=== PATIENT | male | born 1980 | race Caucasian/White ===

== ENCOUNTER 2017-01-15 06:10 | Emergency (ER) | payer SELFPAY ==
[2017-01-15] MEDS ORDERED: HALOPERIDOL LACT 5 MG/ML INJ IM ONE (06:17)
--- NOTE | 2017-01-15 06:19 | EDPHY ---
H & P Source: Patient, Police, EMS - Medical/Surgical History Hx Asthma: No Hx Chronic Respiratory Disease: No Hx Diabetes: No Hx Cardiac Disease: No Hx Renal Disease: No Hx Cirrhosis: No Hx Alcoholism: No Hx HIV/AIDS: No Hx Splenectomy or Spleen Trauma: No Other PMH: Born with one kidney - Social History Smoking Status: Never smoked HPI/ROS: HPI CHIEF COMPLAINT: AMS, Crying, Running in between cars. HISTORY OF PRESENT ILLNESS: Patient is a 36-year-old male, he presents emergency room by EMS with police escort in handcuffs, RT called 911 as this patient was running in and out of the buses and cars. They make contact with me got somewhat agitated with the police and EMS. The patient is not willing to answer any of my questions however intermittently he will cry and then started laughing. He appears to be either under the influence of a substance for psychotic. Unknown significant medical history or psychiatric history. Patient states "You know why I am here" Over and over again. Of note this patient appears disheveled, unkept, the possibly at the influence. He does tell me he did not have any drugs this evening. Past Medical History: Unknown medical history Past Surgical History: Unknown surgical history Social History: Unknown Family History: Unknown ROS REVIEW OF SYSTEMS: Due to mental state Exam Constitutional few stay refuses to answer my questions, unkept triage nursing summary reviewed, vital signs reviewed, awake/alert. Eyes normal conjunctivae and sclera, EOMI, PERRLA. HENT normal inspection, atraumatic, moist mucus membranes, no epistaxis, neck supple/ no meningismus, no raccoon eyes. Respiratory clear to auscultation bilaterally, normal breath sounds, no respiratory distress, no wheezing. Cardiovascular rate normal, regular rhythm, no murmur, no edema, distal pulses normal. Gastrointestinal soft, non-tender, no rebound, no guarding, normal bowel sounds, no distension, no pulsatile mass. Genitourinary no CVA tenderness. Musculoskeletal no midline vertebral tenderness, full range of motion, no calf swelling, no tenderness of extremities, no meningismus, good pulses, neurovascularly intact. Skin pink, warm, & dry, no rash, skin atraumatic. Neurologic patient is awake and moves all extremities appropriately, however refused to answer any of my questions, Psychiatric waxing and waning from sad to happy, crying intermittently and then laughing. Heme/Lymph/Immune no lymphadenopathy. Differential Diagnosis: Includes but is not limited to in a particular order acute psychosis, substance abuse, drug intoxication, electrolyte disturbance depression, suicidal ideation, acute mental illness Medical Decision Making: Plan for this patient blood draw for medical clearance , drug screen, alcohol level. Patient placed on M1 hold for his safety. Re-evaluation: 0628: This patient appears to be under the influence of substance versus being psychotic. Will workup medically. Patient be placed on M1 hold will then will need mental health evaluation. 0628: Place on m1 hold. 0647: Patient signed over to Dr. Ambrose at 7am Shift change. Follow-up medical clearance blood work. Zyprexa p.o. as needed. IM Haldol as needed. Appropriately disposition. Once medically cleared. (Dileep Murray) Constitutional: Initial Vital Signs Temperature (C) 36.7 C 01/15/17 06:15 Heart Rate 101 H 01/15/17 06:15 Respiratory Rate 18 01/15/17 06:15 Blood Pressure 132/88 H 01/15/17 06:15 O2 Sat (%) 97 01/15/17 06:15 O2 Delivery Mode Room Air Allergies/Adverse Reactions: No Known Allergies Allergy (Verified 07/20/13 22:44) Home Medications: Medication Instructions Recorded NO HOME MEDS 01/18/10 Medical Decision Making ED Course/Re-evaluation: I took over care of this patient at 7:00 a.m.. This patient is on an M1 hold. He was brought in by police for agitation and running in and out of traffic. Questionable methamphetamine abuse. He has been given 10 mg of Zyprexa. He is waiting for evaluation by Behavioral Health. 3:00 p.m., the patient continues to await behavioral health evaluation. The patient has been medically cleared. Behavioral Health 1 of the the patient until his urine drug screen is back duration has been refusing to provide us a sample for this. He is being given fluids and this is being encouraged. Care to Dr. Latonya Jj at 3:00 p.m.. (Berny Marmolejo) Patient's care was assumed by myself at 3:00 p.m.. At 4:30 p.m. I evaluated the patient who is resting comfortably. Up to this point he has not urinated. I explained that if the patient the importance of a urine sample. Patient provided a urine sample shortly thereafter. Patient's urine tox is positive for amphetamines. [facility] evaluated the patient. Please see their notes. Per the [facility] director speech patient denies suicidal ideation or homicidal ideation. He denies any hallucinations or paranoia. He he is no longer disabled and has clear mentation. I recommend that the patient's 72 hour mental health hold the vacated I am comfortable with that plan. Arrangements were made for the patient to go to the [facility] and a bus pass was provided. (Latonya Jj) Differential Diagnosis: After the history was obtained and physical exam performed, the following differential for the patient's altered mental status was considered included but was not limited to hypoglycemia, electrolyte disturbances, tumor, drug or alcohol intoxication, stroke, or TIA. (Latonya Jj) - Data Points Laboratory Results: Laboratory Results 01/15/17 06:45 01/15/17 06:45 Medications Given: Discontinued Medications Haloperidol Lactate (Haldol Injection) 5 mg IM EDNOW ONE Stop: 01/15/17 06:18 Last Admin: 01/15/17 08:03 Dose: Not Given Olanzapine (Olanzapine) 10 mg PO ONCE ONE Stop: 01/15/17 06:47 Last Admin: 01/15/17 06:48 Dose: 10 mg Olanzapine (Zyprexa Zydis) 5 mg PO EDNOW ONE Stop: 01/15/17 06:47 Last Admin: 01/15/17 08:03 Dose: Not Given Departure - Departure Disposition: Home, Routine, Self-Care Clinical Impression: Polysubstance abuse Altered mental status Qualifiers: Altered mental status type: unspecified Qualified Code(s): R41.82 - Altered mental status, unspecified Condition: Good Instructions: Methamphetamine Abuse (ED) Additional Instructions: Please stop using methamphetamines. Follow up with [facility] as previously directed Referrals: Patient,NotPresent [Primary Care Provider] - As per Instructions
[2017-01-15] MEDS ORDERED: OLANZapine 5 MG TAB ONE (06:40)
[2017-01-15] MEDS ORDERED: OLANZapine 5 MG TAB PO ONE (06:46)
[2017-01-15] MEDS ORDERED: OLANZapine DISINTEGR 5 MG TAB PO ONE (06:46)
[2017-01-15 07:08] LABS: % IMMATURE GRANULYOCYTES 0.3 % (0.0-1.1); ABSOLUTE IMMATURE GRANULOCYTES 0.04 10^3/uL (0.00-0.10); ADD DIFF? NO; ADD MORPH? NO; ADD SCAN? NO; ATYPICAL LYMPHOCYTE FLAG 10 (0-99); FRAGMENT RBC FLAG 0 (0-99); HEMATOCRIT 48.7 % (40.0-51.0); HEMOGLOBIN 17.2 g/dL (13.7-17.5); LEFT SHIFT FLG 0 (0-99); LIPEMIA HEMOLYSIS FLAG 90 (0-99); MEAN CELL HEMOGLOBIN 31.9 pg (27.9-34.1); MEAN CELL HEMOGLOBIN CONCENTR. 35.3 g/dL (32.4-36.7); MEAN CELL VOLUME 90.4 fL (81.5-99.8); MEAN PLATELET VOLUME 10.1 fL (8.7-11.7); PLATELET CLUMPS FLAG 0 (0-99); PLATELET COUNT 261 10^3/uL (150-400); RED BLOOD CELL COUNT 5.39 10^6/uL (4.40-6.38); RED CELL DISTRIBUTION WIDTH 11.8 % (11.5-15.2)
[2017-01-15 07:13] LABS: ANION GAP 14 mEq/L (8-16); CALCIUM 9.9 mg/dL (8.5-10.4); CARBON DIOXIDE 25 mEq/l (22-31); CHLORIDE 104 mEq/L (97-110); CREATININE 0.9 mg/dL (0.7-1.3); ETHANOL SERUM < 10 mg/dL (0-10); GLOMERULAR FILTRATION RATE > 60; GLUCOSE 85 mg/dL (70-100); POTASSIUM 3.9 mEq/L (3.5-5.2); SALICYLATE < 1.0 mg/dL (2.0-20.0); SODIUM 143 mEq/L (134-144)
[2017-01-15 08:18] VITALS: TEMP 98.2
[2017-01-15 18:42] VITALS: BP 114/65; PULSE 97; RESP 17; O2SAT 95
== END 2017-01-15 18:39 | disposition home or self-care (01) ==
LOC: EDUNIT#
DX: R41.82 Altered mental status, unspecified (principal); F19.10 Other psychoactive substance abuse, uncomplicated
CPT/HCPCS: 80305; G0480

== ENCOUNTER 2017-12-23 12:24 | Inpatient (IN) | payer MEDICAID, OTHER ==
[2017-12-23] MEDS ORDERED: AMPICILLIN/SULBACTAM 3 GM in NS 100 ML IV ONE (13:07)
--- NOTE | 2017-12-23 13:12 | EDPHY ---
H & P Stated Complaint: CRACKED TOOTH R LOWER MOLAR SWELLING /PAIN X 1 WEEK Time Seen by Provider: 12/23/17 12:56 HPI/ROS: CHIEF COMPLAINT: Jaw pain x4 days HISTORY OF PRESENT ILLNESS: 37-year-old immunocompetent male history of poor dentition, fractured a right mandibular molar 1 year ago, complaining of 4 days of progressive pain, swelling to the submental submandibular space as well as progressive trismus. Unable to tolerate oral intake. Decreased urine output. No fever no chills. REVIEW OF SYSTEMS: 10 systems reviewed and negative with the exception of the elements mentioned in the history of present illness PAST MEDICAL & SURGICAL HISTORY: history of poor dentition SOCIAL HISTORY: Positive soccer PHYSICAL EXAM (Prior to examination, patient consented to physical exam, hands were washed and my usual and customary physical exam procedures followed) 1) GENERAL: Well-developed, well-nourished, alert and oriented. Appears to be in no acute distress. 2) HEAD: Normocephalic, atraumatic 3) HEENT: Pupils equal, round, reactive to light bilaterally. Sclera anicteric. 2 cm trismus noted. Percussion of the sublingual spaces nontender. No Toponas appearance ower palpation. Unable to adequately assess posterior dentition secondary to trismus Dry mucous membranes. Ears bilaterally with normal tympanic membranes. 4) NECK: Full range of motion, erythema, induration, tenderness to the right submandibular and right submental region particular. 5) LUNGS: Clear auscultation bilaterally, no wheezes, no rhonchi, no retractions. 6) HEART: Regular rate and rhythm, no murmur, no heave, no gallop. 7) ABDOMEN: No guarding, no rebound, no focal tenderness, negative McBurney's, negative Jang's, negative Rovsing's, negative peritoneal sign, 8) MUSCULOSKELETAL: Moving all extremities, no focal areas of tenderness, no obvious trauma. No peripheral edema or discoloration. 9) BACK: No CVA tenderness, no midline vertebral tenderness, no fluctuance, no step-off, no obvious trauma, no visual or palpable abnormality. 10) SKIN: No rash, no petechiae. 11) Psychiatric: Patient is oriented X 3, there is no agitation. DIFFERENTIAL DIAGNOSIS: In no particular order including but not limited to Ludwigs Angina, submental phlegmon, abscess, periapical abscess, odontogenic etiology - Personal History Current Tetanus Diphtheria and Acellular Pertussis (TDAP): Yes - Medical/Surgical History Hx Asthma: No Hx Chronic Respiratory Disease: No Hx Diabetes: No Hx Cardiac Disease: No Hx Renal Disease: Yes Hx Cirrhosis: No Hx Alcoholism: No Hx HIV/AIDS: No Hx Splenectomy or Spleen Trauma: No Other PMH: Born with one kidney - Social History Smoking Status: Never smoked Constitutional: Initial Vital Signs Temperature (C) 36.6 C 12/23/17 12:31 Heart Rate 74 12/23/17 12:31 Respiratory Rate 17 12/23/17 12:31 Blood Pressure 109/75 12/23/17 12:31 O2 Sat (%) 98 12/23/17 12:31 O2 Delivery Mode Room Air Allergies/Adverse Reactions: No Known Allergies Allergy (Verified 12/23/17 12:30) Home Medications: Medication Instructions Recorded NK [No Known Home Meds] 12/23/17 Medical Decision Making - Diagnostics Imaging Results: Imaging Impressions Neck CT 12/23/17 13:08 Impression: Soft tissue abscess in the right submandibular/submental region measuring 4.0 x 2.0 cm, probably associated with the second mandibular molar (# 31), as it has a small periapical cavity. Findings and recommendations discussed with Giovanni Garcia at 1504 hour, . ED Course/Re-evaluation: 1:11 p.m.: Patient has significant submandibular and submental erythema induration tenderness swelling. Will plan on CT of the neck, IV Unasyn, more than likely admission to hospital with ENT consultation. I saw this patient independently based on established practice protocols. Care of patient under supervision of secondary supervising physician Dr Cespedes with whom I discussed case. 3:10 p.m.: Patient's CT imaging was positive for soft tissue abscess the right submandibular submental region measuring 4 cm x 2 cm with probable association with tooth number 31. This is the location the patient's remote dental fracture 3:15 p.m.: Consultation with ANTONIETA Nixon with Dr Rhys Stapleton who will review images and call me back 3:50 p.m.: Consultation with hospitalist Dr. Cullen will admit patient primarily 3:55 p.m.: ENT ANTONIETA Nixon in the ER to evaluate patient, recommended initiation of steroids. 4:01 p.m.: Consultation with [facility] Dr. René Cordero, patient remains NPO since yesterday. Dr. René Cordero would like to take the patient to the operating room this evening for incision and drainage, requests he remain NPO - Data Points Laboratory Results: Laboratory Results 12/23/17 13:40 12/23/17 13:40 12/23/17 12/23/17 12/23/17 13:45 13:40 13:40 WBC 7.35 10^3/uL 10^3/uL (3.80-9.50) RBC 5.34 10^6/uL 10^6/uL (4.40-6.38) Hgb 17.0 g/dL g/dL (13.7-17.5) POC Hgb 17.0 gm/dL gm/dL (13.7-17.5) Hct 48.4 % % (40.0-51.0) POC Hct 50 % % (40-51) MCV 90.6 fL fL (81.5-99.8) MCH 31.8 pg pg (27.9-34.1) MCHC 35.1 g/dL g/dL (32.4-36.7) RDW 11.7 % % (11.5-15.2) Plt Count 251 10^3/uL 10^3/uL (150-400) MPV 9.8 fL fL (8.7-11.7) Neut % (Auto) 68.7 % % (39.3-74.2) Lymph % (Auto) 18.5 % % (15.0-45.0) Curry % (Auto) 10.9 % % (4.5-13.0) Eos % (Auto) 1.1 % % (0.6-7.6) Baso % (Auto) 0.5 % % (0.3-1.7) Nucleat RBC Rel Count 0.0 % % (0.0-0.2) Absolute Neuts (auto) 5.05 10^3/uL 10^3/uL (1.70-6.50) Absolute Lymphs (auto) 1.36 10^3/uL 10^3/uL (1.00-3.00) Absolute Monos (auto) 0.80 10^3/uL 10^3/uL (0.30-0.80) Absolute Eos (auto) 0.08 10^3/uL 10^3/uL (0.03-0.40) Absolute Basos (auto) 0.04 10^3/uL 10^3/uL (0.02-0.10) Absolute Nucleated RBC 0.00 10^3/uL 10^3/uL (0-0.01) Immature Gran % 0.3 % % (0.0-1.1) Immature Gran # 0.02 10^3/uL 10^3/uL (0.00-0.10) POC Sodium 139 mEq/L mEq/L (135-145) Sodium REJ POC Potassium 4.0 mEq/L mEq/L (3.3-5.0) Potassium Not Reported POC Chloride 101 mEq/L mEq/L (97-110) Chloride Not Reported Carbon Dioxide Not Reported Anion Gap Not Reported POC BUN 14 mg/dL mg/dL (7-23) BUN Not Reported Creatinine Not Reported POC Creatinine 0.7 mg/dL mg/dL (0.7-1.3) Estimated GFR Not Reported Glucose Not Reported POC Glucose 76 mg/dL mg/dL (70-100) Calcium Not Reported Medications Given: Discontinued Medications Ampicillin Sodium/Sulbactam (Sodium 3 gm/ Sodium Chloride) 100 mls @ 200 mls/ hr IV EDNOW ONE PRN Reason: Protocol Stop: 12/23/17 13:36 Last Admin: 12/23/17 14:36 Dose: 100 mls Point of Care Test Results: Chemistry 12/23/17 13:45 POC Sodium 139 mEq/L mEq/L (135-145) POC Potassium 4.0 mEq/L mEq/L (3.3-5.0) POC Chloride 101 mEq/L mEq/L (97-110) POC BUN 14 mg/dL mg/dL (7-23) POC Creatinine 0.7 mg/dL mg/dL (0.7-1.3) POC Glucose 76 mg/dL mg/dL (70-100) ISTAT H&H 12/23/17 13:45 POC Hgb 17.0 gm/dL gm/dL (13.7-17.5) POC Hct 50 % % (40-51) Departure - Departure Disposition: [facility] Clinical Impression: Sub mandibular abscess Condition: Fair
[2017-12-23 13:51] LABS: PLATELET COUNT 251 10^3/uL (150-400)
[2017-12-23] MEDS ORDERED: IOPAMIDOL (ISOVUE-300) 100 ML BTL ONE (14:10)
[2017-12-23] MEDS ORDERED: DEXAMETHASONE 10 MG/ML VIAL IVP ONE (15:57)
--- NOTE | 2017-12-23 16:00 | PDGENHP ---
History and Physical - Chief Complaint Right jaw pain - History of Present Illness Patient reports cracking a right sided molar approximately a year ago by biting down on a popcorn kernel. He did not seek treatment at this time. He managed to keep the area clean until he started to have a hard time chewing food a few weeks ago. One week ago, he noticed a significant increase in his pain level and discomfort and reports being feverish. Denies chills, nausea, sweats. Patient came into the ED today after "not being able to take it anymore," with a swollen jaw and inability to fully open mouth due to edema and pain. He also reports feeling chest congested. History Information - Allergies/Home Medication List Allergies/Adverse Reactions: No Known Allergies Allergy (Verified 12/23/17 12:30) Home Medications: NK [No Known Home Meds] 12/23/17 [Last Taken Unknown] I have personally reviewed and updated: family history, medical history, social history, surgical history - Past Medical History no pertinent PMH Additional medical history: Reports being born with only one kidney. He has a right kidney. - Surgical History Reports: no pertinent surgical hx - Family History Positive for: non-pertinent - Social History Smoking Status: Current every day smoker (Social) Tobacco Use: Cigarettes Alcohol Use: Other (Social) Drug Use: Marijuana Review of Systems Review of Systems: Constitutional: Reports: fever EENMT: Reports: no symptoms Cardiac: Reports: no symptoms Respiratory: Reports: cough Gastrointestinal: Reports: no symptoms Genitourinary: Reports: no symptoms Muscolosketal: Reports: no symptoms Skin: Reports: no symptoms Neurological: Reports: emotional problems Hematologic/Lymphatic: Reports: swollen glands Immunologic/Allergy: Reports: no symptoms Physical Exam Physical Exam: Temp Pulse Resp BP Pulse Ox 36.6 C 68 16 120/81 H 98 12/23/17 12:31 12/23/17 14:00 12/23/17 14:00 12/23/17 14:00 12/23/17 14:00 Constitutional: uncomfortable, unkempt (Patient considers himself a "traveler" and hasn't showered in a few days; he spent his recent nights in a tent) Eyes: PERRL Ears, Nose, Mouth, Throat: no oral mucosal ulcers, poor dentition, other ( Visibly cracked tooth; right side mandible swollen) Cardiovascular: regular rate and rhythym, no murmur, rub, or gallop, No edema Peripheral Pulses: 2+: dorsalis-pedis (R), dorsalis-pedis (L) Respiratory: no respiratory distress, no rales or rhonchi, clear to auscultation Gastrointestinal: normoactive bowel sounds, soft, non-tender abdomen, no palpable masses Genitourinary: no bladder fullness, no bladder tenderness Skin: warm, normal color, no rashes or abrasions, no fluctuance, no induration, No mottled Musculoskeletal: full muscle strength, no muscle tenderness, normal joint ROM, no joint effusions Neurologic: AAOx3, sensation intact bilaterally Psychiatric: interacting appropriately, not anxious, not encephalopathic, thought process linear Lymph, Heme, Immunologic: lymphadenopathy Lab Data & Imaging Review 12/23/17 13:40 12/23/17 13:40 WBC 7.35 10^3/uL (3.80-9.50) 12/23/17 13:40 RBC 5.34 10^6/uL (4.40-6.38) 12/23/17 13:40 Hgb 17.0 g/dL (13.7-17.5) 12/23/17 13:40 POC Hgb 17.0 gm/dL (13.7-17.5) 12/23/17 13:45 Hct 48.4 % (40.0-51.0) 12/23/17 13:40 POC Hct 50 % (40-51) 12/23/17 13:45 MCV 90.6 fL (81.5-99.8) 12/23/17 13:40 MCH 31.8 pg (27.9-34.1) 12/23/17 13:40 MCHC 35.1 g/dL (32.4-36.7) 12/23/17 13:40 RDW 11.7 % (11.5-15.2) 12/23/17 13:40 Plt Count 251 10^3/uL (150-400) 12/23/17 13:40 MPV 9.8 fL (8.7-11.7) 12/23/17 13:40 Neut % (Auto) 68.7 % (39.3-74.2) 12/23/17 13:40 Lymph % (Auto) 18.5 % (15.0-45.0) 12/23/17 13:40 Centre % (Auto) 10.9 % (4.5-13.0) 12/23/17 13:40 Eos % (Auto) 1.1 % (0.6-7.6) 12/23/17 13:40 Baso % (Auto) 0.5 % (0.3-1.7) 12/23/17 13:40 Nucleat RBC Rel Count 0.0 % (0.0-0.2) 12/23/17 13:40 Absolute Neuts (auto) 5.05 10^3/uL (1.70-6.50) 12/23/17 13:40 Absolute Lymphs (auto) 1.36 10^3/uL (1.00-3.00) 12/23/17 13:40 Absolute Monos (auto) 0.80 10^3/uL (0.30-0.80) 12/23/17 13:40 Absolute Eos (auto) 0.08 10^3/uL (0.03-0.40) 12/23/17 13:40 Absolute Basos (auto) 0.04 10^3/uL (0.02-0.10) 12/23/17 13:40 Absolute Nucleated RBC 0.00 10^3/uL (0-0.01) 12/23/17 13:40 Immature Gran % 0.3 % (0.0-1.1) 12/23/17 13:40 Immature Gran # 0.02 10^3/uL (0.00-0.10) 12/23/17 13:40 POC Sodium 139 mEq/L (135-145) 12/23/17 13:45 Sodium REJ 12/23/17 13:40 POC Potassium 4.0 mEq/L (3.3-5.0) 12/23/17 13:45 Potassium Not Reported 12/23/17 13:40 POC Chloride 101 mEq/L (97-110) 12/23/17 13:45 Chloride Not Reported 12/23/17 13:40 Carbon Dioxide Not Reported 12/23/17 13:40 Anion Gap Not Reported 12/23/17 13:40 POC BUN 14 mg/dL (7-23) 12/23/17 13:45 BUN Not Reported 12/23/17 13:40 Creatinine Not Reported 12/23/17 13:40 POC Creatinine 0.7 mg/dL (0.7-1.3) 12/23/17 13:45 Estimated GFR Not Reported 12/23/17 13:40 Glucose Not Reported 12/23/17 13:40 POC Glucose 76 mg/dL (70-100) 12/23/17 13:45 Calcium Not Reported 12/23/17 13:40 Imaging Review: Neck CT reviewed. Assessment & Plan Assessment: Patient pleasant and cooperative. Alert and oriented. He had difficulty smiling and opening his mouth due to the pain and swelling. Right submandibular lymph nodes swollen and tender. AILIN. Plan: Acute right sided submandibular abscess -IV antibiotics -Consult with Oral Surgery -F/u with blood culture data Homelessness -Consult with case management
[2017-12-23] MEDS ORDERED: LR 1,000 ML IV ONE (16:48)
[2017-12-23] MEDS ORDERED: BUPIVACAINE 0.25% 30 ML SDV ONE (17:10)
[2017-12-23] MEDS ORDERED: BACITRACIN ZINC 14.2 GM OINTTUBE TP ONE (17:10)
[2017-12-23] MEDS ORDERED: LIDO/EPI 2%** Not for Epidural 20 ML MDV ONE (17:10)
[2017-12-23] MEDS ORDERED: EPINEPHrine 1 MG/ML INJ ONE (17:10)
[2017-12-23] MEDS ORDERED: CHLORHEXIDINE GLUCONATE 15 ML UDL ONE (17:10)
[2017-12-23] MEDS ORDERED: BACITRACIN 50,000 UNITS/10 ML SYR IRR ONE (17:11)
[2017-12-23] MEDS ORDERED: POLYMYXIN B SULFATE 500,000 UNIT/10 ML SYR IRR ONE (17:11)
[2017-12-23] MEDS ORDERED: MIDAZOLAM 2 MG/2 ML VIAL IVP ONE (17:13)
--- NOTE | 2017-12-23 17:16 | PDANEPAE ---
ANE Past Medical History - Cardiovascular History Hx Hypertension: No Hx Arrhythmias: No Hx Chest Pain: No Hx Coronary Artery / Peripheral Vascular Disease: No Hx CHF / Valvular Disease: No Hx Palpitations: No - Pulmonary History Hx COPD: No Hx Asthma/Reactive Airway Disease: No Hx Recent Upper Respiratory Infection: Yes Hx Oxygen in Use at Home: No Hx Sleep Apnea: No - Endocrine History Hx Diabetes: No Hypothyroid: No Hyperthyroid: No Obesity: no ANE Review of Systems Review of Systems: ANE Patient History - Allergies Allergies/Adverse Reactions: No Known Allergies Allergy (Verified 12/23/17 12:30) - Home Medications Home medications: home medication list seen and reviewed Home Medications: NK [No Known Home Meds] 12/23/17 [Last Taken Unknown] - NPO status NPO Status: no food or drink >8 hours NPO Since - Liquids (Date): 12/23/17 NPO Since - Liquids (Time): 08:00 NPO Since - Solids (Date): 12/22/17 NPO Since - Solids (Time): 17:00 - Smoking Hx Smoking Status: Never smoked - Family Anes Hx Family Anes Hx: neg - N/A ANE Labs/Vital Signs - Labs Result Diagrams: 12/23/17 13:40 12/23/17 13:40 - Vital Signs Blood Pressure: 127/84 Heart Rate: 74 Respiratory Rate: 16 O2 Sat (%): 99 Height: 170.18 cm Weight: 65.771 kg ANE Physical Exam - Airway Neck exam: decreased ROM Mallampati Score: Class 3 Mouth exam: poor dentition - Pulmonary Pulmonary: no respiratory distress - Cardiovascular Cardiovascular: regular rate and rhythym, no murmur, rub, or gallop - ASA Status ASA Status: II ANE Anesthesia Plan Anesthesia Plan: general endotracheal anesthesia
--- NOTE | 2017-12-23 17:18 | PDCONSULT ---
Fire Crew Specialist Note: ENT CONSULTATION DATE OF SERVICE 12/23/17 SUBJECTIVE: 37 year old male with 4 day history of right jaw swelling and pain. History notable for cracked lower right molar 4 months ago. It has been painful for last month. Presented to ER today with trismus, worsening pain, odonyphagia. Cannot drink or eat. Denies dyspnea. He has received IV Unasyn in the ER. ROS: Otherwise noncontributory. PAST MEDICAL HISTORY: Otherwise noncontributory. FAMILY HISTORY: Otherwise noncontributory. SOCIAL HISTORY: Otherwise noncontributory. VITALS: BP 127/84, HR 74, O2 99 RA, TEMP 36.7 C FOCUSED ENT PHYSICAL EXAM: patient evaluated at bedside. Nontoxic in no acute distress. He is unable to open mouth more than 3 cm. Very difficult to examine mouth. Very tender, diffuse swelling right submandibular area. Neck full range of motion. He is breathing well. No stridor or hoarseness. CT NECK SOFT TISSUE W IV CONTRAST REVIEWED: soft tissue abscess in right submandibular/submental region 4.0 x 2.0 cm probably associated with molar #31. ASSESSMENT/PLAN: Discussed case with oral surgery, Dr. Cordero who has taken over case.
[2017-12-23] MEDS ORDERED: fentaNYL 100 MCG/2 ML INJ ONE ×2 (17:21→18:21)
[2017-12-23] MEDS ORDERED: PROPOFOL 200 MG/20 ML VIAL ONE (17:21)
[2017-12-23] MEDS ORDERED: KETOROLAC 30 MG/1 ML SDV ONE (17:23)
[2017-12-23] MEDS ORDERED: ONDANSETRON 4 MG/2 ML VIAL ONE (17:23)
[2017-12-23] MEDS ORDERED: LIDOCAINE 2% 2 ML INJ ONE (17:23)
[2017-12-23] MEDS ORDERED: ACETAMINOPHEN 500 MG TAB PO PRN (17:55)
[2017-12-23] MEDS ORDERED: oxyCODONE IR 5 MG TAB PO PRN (17:55)
[2017-12-23] MEDS ORDERED: PROMETHAZINE HCL 25 MG/ML INJ IVP PRN (17:55)
[2017-12-23] MEDS ORDERED: MEPERIDINE 25 MG/0.5 ML AMP IVP PRN (17:55)
[2017-12-23] MEDS ORDERED: NALOXONE HCL 0.4 MG/ML INJ IVP PRN (17:55)
[2017-12-23] MEDS ORDERED: ONDANSETRON 4 MG/2 ML VIAL IVP PRN ×2 (17:55→19:34)
[2017-12-23] MEDS ORDERED: DIAZEPAM 5 MG/ML 1 ML SYR IVP PRN (17:55)
[2017-12-23] MEDS ORDERED: LR 500 ML IV PRN (17:55)
[2017-12-23] MEDS ORDERED: OXYCODONE/APAP 5/325 TAB PO PRN (18:18)
--- NOTE | 2017-12-23 18:22 | POSTOPPROG ---
Post Op Note Date of Operation: 12/23/17 Surgeon: René Cordero Anesthesia: GET(General Endotracheal) Pre-op Diagnosis: submandibular abscess, caries # 31 Post-op Diagnosis: same Indication: rapid swelling Procedure: I and D abscess, extract #31 Findings: purulence in submandibular abscess Inf/Abcess present in the surg proc area at time of surgery?: Yes Depth: Deep Incisional (Fascial) EBL: Minimal Total fluids administered: 500cc Complications: none Drains: Harshaw (right submandibular space abscess)
[2017-12-23] MEDS: fentaNYL 100 MCG/2 ML INJ IVP PRN ×2 (18:24→18:40)
[2017-12-23] MEDS ORDERED: ONDANSETRON DISINTEGRATING 4 MG TAB PO PRN (19:34)
[2017-12-23] MEDS: IBUPROFEN 600 MG TAB PO PRN (20:23)
[2017-12-23] MEDS: AMPICILLIN/SULBACTAM 3 GM in NS 100 ML IV SCH (20:25)
[2017-12-23] MEDS: OXYCODONE/APAP 5/325 TAB PO PRN ×2 (20:27→23:12)
[2017-12-24] MEDS: AMPICILLIN/SULBACTAM 3 GM in NS 100 ML IV SCH ×4 (02:43→20:13)
[2017-12-24] MEDS: OXYCODONE/APAP 5/325 TAB PO PRN ×4 (08:50→20:14)
--- NOTE | 2017-12-24 09:06 | ASMTCMCOM ---
CM Note CM Note Notes: Pt is a 37 y/o man admitted for right jaw pain. Pt cracked his right sided molar about a year ago and did not seek treatment. About a week ago, pt experienced significant pain, discomfort and reports being feverish. Pt is currently being treated w/ ivabx. Pt had oral surgery. Pt is homeless. Needs are TBD at this time. CM to follow. Plan: TBD Date Signed: 12/24/2017 09:05 AM Electronically Signed By:RUTH Prater
[2017-12-24] MEDS: IBUPROFEN 600 MG TAB PO PRN ×3 (10:24→23:08)
--- NOTE | 2017-12-24 14:35 | SOAPPROG ---
SOAP Progress Note Assessment/Plan: S: POD # 1 s/p ext #31 with I and D of right submandibular and submental abscess. " felling better today" Exam - neda drain still productive, trismus of 15mm ( better per patient) wound healing well, no palatal drape or uvular deviation a: recovering well p: 1) leave drain for now as is productive. Heat to area ( shower) will help 2) on unisyn IV abx for now, pending cultures 3) will continue to round as long as in house. : Objective: Vital Signs Temp Pulse Resp BP Pulse Ox 36.1 C 58 L 16 103/60 96 12/24/17 11:33 12/24/17 11:33 12/24/17 11:33 12/24/17 11:33 12/24/17 11:33 Microbiology 12/23/17 17:47 Gram Stain - Final Neck - Eswab 12/23/17 12/24/17 12/25/17 05:59 05:59 05:59 Intake Total 2360 125 Output Total 10 Balance 2350 125 ICD10 Worksheet Patient Problems: Problems Problem Status Onset Altered mental status Acute Polysubstance abuse Acute
--- NOTE | 2017-12-24 16:53 | PDMN ---
Medical Necessity Medical necessity: Pt meets IP criteria per MD; est los .2 mn for eval/tx of submandibular abscess; requiring surgical intervention & IV abx; per H&P & order 12/23/17
--- NOTE | 2017-12-24 16:57 | ASMTCMCOM ---
CM Note CM Note Notes: Patient plan of care reviewed in rounds. He is s/p tooth extraction and I&D of abscess Per RN doing well, independent in room, tolerating diet. He it a "traveler" per his RN. No current needs identified. CM to follow. Plan:TBD Date Signed: 12/24/2017 04:57 PM Electronically Signed By:Edith Allen RN
--- NOTE | 2017-12-24 17:36 | HOSPPROG ---
Hospitalist Progress Note Assessment/Plan: #Submandibular abscess: POD #1 I&D, drain in place, cont IV Unasyn #Pain: well-controlled #Diet: regular #DVT ppx #Disp:warrants inpatient admission for IV abx, drain Subjective: pain controlled. Site draining blood Objective: Vital Signs Temp Pulse Resp BP Pulse Ox 36.8 C 75 16 113/69 99 12/24/17 16:37 12/24/17 16:37 12/24/17 16:37 12/24/17 16:37 12/24/17 16:37 Microbiology 12/23/17 17:47 Gram Stain - Final Neck - Eswab 12/23/17 12/24/17 12/25/17 05:59 05:59 05:59 Intake Total 2360 525 Output Total 10 Balance 2350 525 - Time Spent With Patient Time Spent with Patient: greater than 35 minutes Time Spent with Patient: Greater than 35 minutes spent on this patients care, greater than 50% of time spent counseling, educating, and coordinating care regarding the above mentioned plan. - Physical Exam Constitutional: no apparent distress Eyes: PERRL Ears, Nose, Mouth, Throat: other (submandibular drain in place, serosanginous drainage) Cardiovascular: regular rate and rhythym Respiratory: no respiratory distress Gastrointestinal: normoactive bowel sounds Genitourinary: no bladder fullness Skin: warm Musculoskeletal: full muscle strength Neurologic: AAOx3, CN II-XII Intact Psychiatric: interacting appropriately ICD10 Worksheet Patient Problems: Problems Problem Status Onset Altered mental status Acute Polysubstance abuse Acute
[2017-12-24] MEDS ORDERED: AMPICILLIN/SULBACTAM 3 GM in NS 100 ML IV SCH (21:00)
[2017-12-25] MEDS: OXYCODONE/APAP 5/325 TAB PO PRN ×5 (00:35→20:18)
[2017-12-25] MEDS: AMPICILLIN/SULBACTAM 3 GM in NS 100 ML IV SCH ×4 (01:36→19:42)
[2017-12-25] MEDS: IBUPROFEN 600 MG TAB PO PRN (08:12)
--- NOTE | 2017-12-25 08:26 | SOAPPROG ---
SOAP Progress Note Assessment/Plan: S: POD # 2 s/p ext # 31 with I and D of right SM space infection. Improving today, still with significant pain in the lower right Day 2 of unisyn IV abx WBC count yesterday 7.5 . exam: drain still productive, advanced and noted greater production. intraorally heaing well, trismus improving though still significant. ll p: 1) leave drain for now as is productive. Heat to area ( shower) will help 2) on unisyn IV abx for now, still pending cultures 3) will continue to round as long as in house. 4) recommend stay in house until drain no longer productive [place] : 12/25/17 08:24 Objective: Vital Signs Temp Pulse Resp BP Pulse Ox 36.4 C 58 L 16 107/65 97 12/25/17 04:23 12/25/17 04:23 12/25/17 04:23 12/25/17 04:23 12/25/17 04:23 Microbiology 12/23/17 17:47 Gram Stain - Final Neck - Eswab 12/24/17 12/25/17 12/26/17 05:59 05:59 05:59 Intake Total 2360 1125 Output Total 10 Balance 2350 1125 ICD10 Worksheet Patient Problems: Problems Problem Status Onset Altered mental status Acute Polysubstance abuse Acute
--- NOTE | 2017-12-25 15:14 | ASMTCMCOM ---
CM Note CM Note Notes: Patient plan of care reviewed in interdisciplinary rounds. He is progressing well and needs 1 more day of IV antibiotics. He is up in room independently and tolerating regular diet. No needs identified. CM available should needs arise. Plan; DC with no needs. Date Signed: 12/25/2017 03:10 PM Electronically Signed By:Edith Allen RN
--- NOTE | 2017-12-25 17:16 | HOSPPROG ---
Hospitalist Progress Note Assessment/Plan: Assessment: 37-year-old male presenting with right-sided submandibular and submental abscess Plan: 1. Submandibular and submental abscess. Postop day 1 status post incision and drainage at #[address] Meghana altman ongoing [place] drain output -Gram stain currently pending with Gram-positive rods, Gram-positive cocci, Gram -negative cocci, monitor for speciation -continue on IV Unasyn so long as there is a drain output -will adjust oral antibiotics once patient is stable for discharge -patient pain currently managed with ibuprofen, local heat Diet. Advance to solids today Prophylaxis. Low risk patient, ambulatory Code. Full Disposition. Anticipated discharge uncertain this time, contingent on reduction in [place] drain output and ongoing IV antibiotic requirements, currently remains clinically on resolved, patient will most likely follow-up with Dr. Cordero as outpatient. Subjective: Patient reports pain is controlled with shower, ibuprofen Objective: Vital Signs Temp Pulse Resp BP Pulse Ox 36.5 C 73 16 132/76 H 97 12/25/17 16:00 12/25/17 16:00 12/25/17 16:00 12/25/17 16:00 12/25/17 16:00 Microbiology 12/23/17 17:47 Gram Stain - Final Neck - Eswab 12/24/17 12/25/17 12/26/17 05:59 05:59 05:59 Intake Total 2360 1125 Output Total 10 Balance 2350 1125 - Physical Exam Constitutional: no apparent distress, appears nourished, uncomfortable, No not in pain (Mild when opening mandible) Ears, Nose, Mouth, Throat: other (No oral mucosal abnormalities) Cardiovascular: regular rate and rhythym, no murmur, rub, or gallop Respiratory: no respiratory distress, no rales or rhonchi, clear to auscultation Gastrointestinal: normoactive bowel sounds, soft, non-tender abdomen, no palpable masses, No distension Skin: other (Induration right mandible with mild tenderness, MADY drain submandibularly without surrounding erythema or streaking, no appreciable fluctuance) Neurologic: AAOx3 Psychiatric: interacting appropriately, not anxious, not encephalopathic, thought process linear ICD10 Worksheet Patient Problems: Problems Problem Status Onset Altered mental status Acute Polysubstance abuse Acute
[2017-12-26] MEDS: AMPICILLIN/SULBACTAM 3 GM in NS 100 ML IV SCH ×3 (02:05→15:08)
--- NOTE | 2017-12-26 13:09 | ASMTCMCOM ---
CM Note CM Note Notes: Patient plan of care reviewed in rounds. Drains likely to get pulled today. He will need discharge medications. He is homeless and in need of assisted bed for the night. Call placed to reserve bed. Bus ticket provided. Awaiting final dc otherwise independent. CM available should other needs arise. Plan: DC to assisted Date Signed: 12/26/2017 01:07 PM Electronically Signed By:Edith Allen RN
--- NOTE | 2017-12-26 13:58 | SOAPPROG ---
SOAP Progress Note Assessment/Plan: S: POD # 3 s/p ext # 31 with I and D of right SM space infection. Quite Improved today, swelling diminished, pain diminished. Day 3 of unisyn IV abx. exam: drain no longer productive, oral opening improved. intraorally heaing well, trismus improving ll p: 1) removed drain 2) OK to DC to home with Augmentin 875 bid x 10 days and pain meds 3) follow up with my office [phone] in 1 week or sooner if needed. Jose 12/26/17 13:55 Objective: Vital Signs Temp Pulse Resp BP Pulse Ox 36.3 C 61 16 106/81 H 94 12/26/17 08:12 12/26/17 08:12 12/26/17 08:12 12/26/17 08:12 12/26/17 08:12 Microbiology 12/23/17 17:47 Gram Stain - Final Neck - Eswab 12/25/17 12/26/17 12/27/17 05:59 05:59 05:59 Intake Total 1125 500 Balance 1125 500 ICD10 Worksheet Patient Problems: Problems Problem Status Onset Altered mental status Acute Polysubstance abuse Acute
[2017-12-26 14:03] VITALS: BP 127/82
--- NOTE | 2017-12-26 14:49 | GOP ---
DATE OF OPERATION: 12/23/2017 SURGEON: René Cordero DDS ANESTHESIA: General. PREOPERATIVE DIAGNOSIS: Submandibular abscess and caries, #31. POSTOPERATIVE DIAGNOSIS: Submandibular abscess and caries, #31. PROCEDURE PERFORMED: Extraction of tooth #31 and incision and drainage of the right submandibular space and the right submental space abscess. FINDINGS: abscess SPECIMENS: There was 1 specimen sent for deep neck abscess. INDICATIONS: Rapid onset of swelling secondary to tooth ache in #31. DESCRIPTION OF PROCEDURE: The patient was taken to the operating room. He was placed on the operating room table in a supine position. He was induced under general anesthesia. The endotracheal tube was oral and secured by the anesthesiologist. Patient was then passed over to the oral surgery team where he was prepped and draped in a standard floral designer fashion. Approximately 10 cc of lidocaine was infiltrated both extraoral and intraorally. A #15 blade was used to make a stab incision in the point of most fluctuant area of the right submandibular space through the platysma into the abscess. This was then carried up to the inferior border of the mandible and the lingual space and out through the submental space. Another stab incision was made and the hemostat was then placed through. A quarter-inch [place] was introduced through and through the submental and submandibular space and then tied to itself using a 3-0 silk suture. The wound was then copiously irrigated with saline. Attention was then turned to the intraoral side. Tooth #31 was elevated and extracted simply. It was then curetted and irrigated out copiously. Throat pack was removed and then the patient was turned over to the anesthesia service , where he was brought out of anesthesia, and sent to the PACU in stable condition. Again, there was 1 [place] drain. There was 1 specimen sent for deep neck abscess. DRAINS: One quarter-inch [place] drain placed in the right submandibular and submental spaces. /[id number]/MODL MTDD
--- NOTE | 2017-12-26 15:04 | ASMTLACE ---
LACE Length of stay for Answers: 2 days current admission Acuity / Level of Answers: Yes Care: Did the patient have an inpatient admission? Comorbidities - select Answers: Moderate or severe liver all that apply or renal disease # of Emergency department Answers: 1-2 visits in the last 6 months Score: 10 Date Signed: 12/26/2017 02:58 PM Electronically Signed By:Edith Allen RN
--- NOTE | 2017-12-26 16:37 | PDDCSUM ---
Discharge Summary Discharge Summary: DISCHARGE SUMMARY FOLLOW-UP ITEMS: Gram stain result to be followed up by Dr Cordero DATE OF ADMISSION: 12/23/2017 DATE OF DISCHARGE: 12/26/2017 DISCHARGE DIAGNOSES: 1. Submandibular and submental abscess, suspected gamma strep CONSULTATIONS: Oral surgery PROCEDURES / IMAGING: Incision and drainage CHIEF COMPLAINT: Acute neck and jaw pain SUBJECTIVE: Patient is feeling significantly better time discharge, he continues to have some limited opening of his mouth and limited chewing, but less overall pain PHYSICAL EXAM ON DISCHARGE: Systolic blood pressure is 100-130, heart rate 60-80, afebrile overnight, satting well on room air, alert awake oriented x3, induration in the submental area with mild tenderness, no fluctuance, no significant erythema, no output from [place] drains, no oral lesions LABS ON DISCHARGE: White blood cell count 7400, creatinine 0.7, Gram stain demonstrating gamma strep HOSPITAL COURSE BY PROBLEM: The patient presented with acute submental discomfort most likely secondary to abscess formation from oral alfreda and gamma strep. The patient underwent incision and drainage by oral surgery, and had indwelling [place] drains with concomitant IV antibiotics. His hospitalization was extended secondary to ongoing drainage from the [place] drains, and after they stopped draining, the patient was safely transition to oral antibiotics and discharged home. The patient received 10 subsequent days of oral Augmentin and will follow up with the Oral surgery office. DISCHARGE MEDICATIONS: Please see official discharge medication reconciliation sheet in chart , Augmentin 875 twice daily for 10 subsequent days, as needed ibuprofen and oxycodone. DISCHARGE INSTRUCTIONS: [facility], and then he will be residing with his friend in [place] thereafter. The patient will follow up with oral surgery. TIME SPENT: Greater than 30 minutes were spent on direct patient care, as well as discharge planning and preparation.
== END 2017-12-26 14:50 | disposition home or self-care (01) | DRG 98 ==
LOC: F1N 17:46
PROVIDERS: ADMIT Hospitalist; ATTEND Hospitalist
DX: K12.2 Cellulitis and abscess of mouth (principal); F12.90 Cannabis use, unspecified, uncomplicated; K02.9 Dental caries, unspecified; Z72.0 Tobacco use; Z59.0 Homelessness
CPT/HCPCS: 82435-PO; 82565-PO; 82947-PO; 84132-PO; 84295-PO; 84520-PO; 85014-PO; 96374; J0171; J0295; J1100; J1885; J2250; J2270; J2405; J2704; J3010; Q9967